=== PATIENT | female | born 2000 | race Caucasian/White ===

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

== ENCOUNTER 2020-05-09 14:16 | Emergency (ER) | payer MEDICAID, OTHER ==
[~2020-05-09 14:16] MED LIST changes: +Iopamidol 370 76% 100 ML VIAL ONE; -Lidocaine 1% 20 ML MDV ONE
[2020-05-09] MEDS ORDERED: Ketorolac Tromethamine 30 MG/ML VIAL ONE (15:04)
[2020-05-09] MEDS ORDERED: Dexamethasone 10 MG/ML VIAL ONE (15:04)
[2020-05-09] MEDS ORDERED: Clindamycin/D5W 900 mg/50 ml Premix Bag ONE (15:04)
[2020-05-09] MEDS ORDERED: Sodium Chloride 0.9% 1,000 ML ONE (15:04)
[2020-05-09 15:34] LABS: BHCG - Serum Negative (NEGATIVE); Pregs Control Background? CLEAR/WHITE (CLR/WHITE); Pregs Control Bar Appear? YES (CONTROL BAR)
[2020-05-09 15:37] LABS: #Basophils 0.1 thou/uL (0.0-0.2); #Lymphocytes 1.7 thou/uL (1.20-3.40); #Neutrophils 6.2 thou/uL (1.40-6.50); %Basophils 0.9 % (0.0-1.0); %Eosinophils 0.3 % (0.0-10.0); %Lymphocytes 19.2 % (28.0-48.0); %Monocytes 10.9 % (0.0-4.0); %Neutrophils 68.6 % (31.0-61.0); Hemoglobin 13.6 g/dL (12.0-16.0); Mean Corpuscular Hemoglobin 29.5 pg (25.0-35.0); Mean Corpuscular Volume 89.3 fL (78.0-98.0); Mean Platelet Volume 8.5 fL (7.4-10.4); Platelet Count 260 thou/uL (130-400); RBC Distribution Width 10.9 % (11.5-14.5); Red Blood Cell (RBC) Count 4.62 mill/uL (4.00-5.20); White Blood Cell (WBC) Count 9.1 thou/uL (4.8-10.8)
[2020-05-09 15:40] LABS: Anion Gap 16 mmol/L (10-20); BUN (Urea Nitrogen) 9 mg/dL (8.4-21.0); Calc. Creatinine Clearance 0 mL/min (70-130); Calcium 8.9 mg/dL (7.8-10.44); Carbon Dioxide 23 mmol/L (22-29); Chloride 104 mmol/L (98-107); Estimated GFR-MDRD Greater than 90; Glucose 77 mg/dL (70-105); Potassium 3.8 mmol/L (3.5-5.1); Sodium 139 mmol/L (136-145)
--- NOTE | 2020-05-09 16:11 | CT ---
EXAM: CT NECK SOFT TISSUE POST CONTRAST: HISTORY:Neck pain and swelling. Sore throat. COMPARISON:None CORRELATION:None FINDINGS: Brain parenchyma: No pathologic enhancement of the visualized brain parenchyma. Sinuses: Mild mucosal thickening of the right maxillary sinus. Orbits: Limited evaluation the orbits. Nasopharynx:Adequate aeration. No mucosal abnormality. Oral cavity:No obvious masses in the oral cavity. Midline fatty raphae of the tongue is preserved. Th ere is fullness of the left and right tonsillar pillar. There are at least 2 separate hypodense lesions with incomplete peripheral enhancement which may represent 2 separate developing peritonsilla r abscess at the level of the right tonsillar pillar measuring 1.2 and 1.0 cm in maximum dimension. There is narrowing of the airway at the level of the left and right palatine tonsils. Hypopharynx: Epiglottis has a normal caliber. Preepiglottic fat is preserved.. Larynx: No mucosal abnormality. Paraspinal muscles: Symmetric attenuation of the paraspinal muscles and symmetric attenuation of the sternocleidomastoid muscles.. Parotid and salivary glands: Symmetric attenuation of the parotid and submandibular glands Thyroid gland: Unremarkable. Spine: Vertebral body height is maintained. No fracture. No significant central canal stenosis or sig nificant neural foraminal narrowing. Limited evaluation due to technique. Lymph nodes: Enlarged left level 2 lymph node measures 1.0 x 1.3 cm. Enlarged right level 2 lymph nod e measures 1.5 x 1.1 cm. Additional enlarged right level 3 lymph nodes are identified. Lung apices and upper mediastinum: No acute abnormality. IMPRESSION: 1. Reactive lymphadenopathy in the left and right neck as described above. 2. Fullness of the left and right palatine tonsils with possible developing right peritonsillar absce sses. There is associated narrowing of the airway.
== END 2020-05-09 16:33 | disposition home or self-care (01) ==
LOC: MADERS 14:16
DX: J36 Peritonsillar abscess (principal); F32.9 Major depressive disorder, single episode, unspecified
CPT/HCPCS: 70491; 80048; 83605; 84703; 85025; 96365; 96375; J1100; J1885; J3490; J7050; Q9967

== ENCOUNTER 2020-05-13 02:39 | Emergency (ER) | payer OTHER ==
[2020-05-13] MEDS ORDERED: cefTRIAXone\\ROCEPHIN 1 GM VIAL ONE (03:03)
[2020-05-13] MEDS ORDERED: Lidocaine 1% 20 ML MDV ONE ×2 (03:03→03:05)
== END 2020-05-13 03:30 | disposition home or self-care (01) ==
LOC: MADERS 02:39
DX: J02.0 Streptococcal pharyngitis (principal); F32.9 Major depressive disorder, single episode, unspecified; Z79.899 Other long term (current) drug therapy
CPT/HCPCS: J0696

== ENCOUNTER 2020-05-13 12:10 | Emergency (ER) | payer OTHER ==
[~2020-05-13 12:10] MED LIST changes: +Sodium Chloride 0.9% 1,000 ML BAG ONE
[2020-05-13] MEDS ORDERED: Morphine 4 MG/ML VIAL ONE (12:52)
[2020-05-13] MEDS ORDERED: Sodium Chloride 0.9% 1,000 ML ONE ×2 (12:53→15:28)
[2020-05-13] MEDS ORDERED: Clindamycin/D5W 900 mg/50 ml Premix Bag ONE (12:53)
[2020-05-13 13:01] LABS: BHCG - Serum Negative (NEGATIVE); Pregs Control Background? CLEAR/WHITE (CLR/WHITE); Pregs Control Bar Appear? YES (CONTROL BAR)
[2020-05-13 13:10] LABS: Band 2 % (5-11); Hemoglobin 14.2 g/dL (12.0-16.0); Lymphocytes 7 % (28-48); MDiff Complete? YES; Mean Corpuscular HGB CONC 32.9 g/dL (32.0-36.0); Mean Corpuscular Volume 88.3 fL (78.0-98.0); Mean Platelet Volume 8.1 fL (7.4-10.4); Monocytes 2 % (0-4); Myelocyte 1 % (0-0); Neutrophil 81 % (31-61); Platelet Count 252 thou/uL (130-400); Platelet Morphology Comment Appears Adequate; RBC Distribution Width 10.9 % (11.5-14.5); RBC Morphology Normal; Reactive Lymphocytes 7 % (0-10); Red Blood Cell (RBC) Count 4.89 mill/uL (4.00-5.20); White Blood Cell (WBC) Count 15.9 thou/uL (4.8-10.8)
[2020-05-13 13:13] LABS: ALT (SGPT) 15 U/L (8-55); AST (SGOT) 14 U/L (5-30); Albumin 4.2 g/dL (3.5-5.0); Alkaline Phosphatase 78 U/L (40-100); Anion Gap 18 mmol/L (10-20); BUN (Urea Nitrogen) 12 mg/dL (8.4-21.0); Bilirubin, Total 0.5 mg/dL (0.2-1.2); Calc. Creatinine Clearance 0 mL/min (70-130); Calcium 9.1 mg/dL (7.8-10.44); Carbon Dioxide 22 mmol/L (22-29); Chloride 101 mmol/L (98-107); Estimated GFR-MDRD 83; Globulin 3.7 g/dL (2.4-3.5); Glucose 79 mg/dL (70-105); Potassium 3.8 mmol/L (3.5-5.1); Protein, Total 7.9 g/dL (6.0-8.3); Sodium 137 mmol/L (136-145)
--- NOTE | 2020-05-13 13:20 | CT ---
CT OF THE SOFT TISSUES OF THE NECK WITH IV CONTRAST INDICATION: 19-year-old female with bilateral neck pain and swelling and trismus COMPARISON: Prior CT the soft tissues of the neck dated May 09, 2020 FINDINGS: Aerodigestive tract: There is narrowing of the oral pharynx due to enlarged palatine tonsils. There is prominence of the lingual tonsils. Parotids/Submandibular/Thyroid glands: Normal. Lymph nodes: There is a striated appearance to the palatine tonsils. The palatine tonsillar hypertro phy has progressed. No drainable fluid collection is evident. There is worsening upper cervical chain lymphadenopathy bilaterally. The largest seen on the left on image 26 of series 2 measuring 1.8 cm. Lung Apices: Clear. Bones: No acute osseous abnormality. Incidentals: Visualized intracranial contents are unremarkable appearing. The carotid and jugular va sculature appears to opacify normally. IMPRESSION: Worsening palatine and lingual tonsillitis and reactive upper cervical chain lymphadenopathy.
[2020-05-13] MEDS ORDERED: Dexamethasone 4 mg/ml Vial ONE (13:44)
[2020-05-13 15:20] LABS: MONO NEGATIVE CONTROL ZONE White (Negative) (White); MONO POSITIVE CONTROL Pink Line (Positive) (PINK/RED); Mononucleosis NEGATIVE (NEGATIVE)
[2020-05-13] MEDS ORDERED: cefTRIAXone\\ROCEPHIN 1 GM VIAL ONE (15:28)
[2020-05-13] MEDS ORDERED: Sodium Chloride 0.9% 100 ML ONE (15:28)
[2020-05-13] MEDS ORDERED: Dexamethasone 10 MG/ML VIAL ONE (20:26)
[2020-05-13] MEDS ORDERED: Clindamycin/D5W 600 mg/50 ml Premix Bag ONE ×2 (20:27→20:34)
[2020-05-13] MEDS ORDERED: Ketorolac Tromethamine 30 MG/ML VIAL ONE (21:31)
[2020-05-13] MEDS ORDERED: Sodium Chloride 0.45% 1,000 ML ONE (21:31)
== END 2020-05-13 22:40 | disposition short-term general hospital (02) ==
LOC: MADERS 12:10
DX: J02.0 Streptococcal pharyngitis (principal); R59.0 Localized enlarged lymph nodes; F32.9 Major depressive disorder, single episode, unspecified
CPT/HCPCS: 70491; 80053; 83605; 84703; 85025; 86308; 87040; 87081; 87430; 96365; 96366; 96367; 96372; 96375; 96376; 99282; J0696; J1100; J1885; J2270; J3490; J7050; Q9967